=== PATIENT | male | born 2000 | race Caucasian/White ===

== ENCOUNTER 2020-07-30 05:47 | Day surgery (SDC) | payer MEDICAID ==
[~2020-07-30] VITALS: Ht 177.8 cm; Wt 95.0 kg
[2020-07-30] MEDS ORDERED: LACTATED RINGERS 1,000 ML IV SCH (06:33)
[2020-07-30 06:47] VITALS: BP 129/80
[2020-07-30] MEDS ORDERED: IBUPROFEN PO (06:52)
[2020-07-30] MEDS ORDERED: CHLORHEXIDINE 15 ML UDC ONE (06:54)
[2020-07-30] MEDS ORDERED: CHLORHEXIDINE 15 ML UDC MM ONE (07:00)
[2020-07-30] MEDS ORDERED: FENTANYL PF 250 MCG/5ML ONE (07:04)
[2020-07-30] MEDS ORDERED: MIDAZOLAM 1 MG/ML, 2ML ONE (07:04)
[2020-07-30] MEDS ORDERED: hydrALAzine 20 MG/ML, 1ML IV PRN (07:30)
[2020-07-30] MEDS ORDERED: LORazepam 2 MG/ML, 1ML IVPush PRN (07:30)
[2020-07-30] MEDS ORDERED: LABETALOL 5MG/ML, 20ML IV PRN (07:30)
[2020-07-30] MEDS ORDERED: METHOCARBAMOL 1,000 MG in DEXTROSE 5% 100 ML IV PRN (07:30)
[2020-07-30] MEDS ORDERED: HYDROmorphone 1 MG/ML, 1ML INJ IVPush PRN (07:30)
[2020-07-30] MEDS ORDERED: EPHEDRINE 50 MG/ML, 1ML IVPush PRN (07:30)
[2020-07-30] MEDS ORDERED: ACETAMINOPHEN 325 MG TABLET PO PRN (07:30)
[2020-07-30] MEDS ORDERED: OXYcodone 5 MG/5 ML ORAL.SOL UDC PO PRN (07:30)
[2020-07-30] MEDS ORDERED: PROMETHAZINE 25 MG SUPP PR PRN (07:30)
[2020-07-30] MEDS ORDERED: FENTANYL PF 100 MCG/2ML IV PRN (07:30)
[2020-07-30] MEDS ORDERED: KETOROLAC 30 MG/1 ML IVPush PRN (07:30)
[2020-07-30] MEDS ORDERED: DEXMEDETOMIDINE 200 MCG/2 ML ONE (07:35)
[2020-07-30] MEDS ORDERED: NEOSTIGMINE 1 MG/ML, 10ML ONE (07:58)
[2020-07-30] MEDS ORDERED: ONDANSETRON 2MG/ML, 2ML ONE (07:58)
[2020-07-30] MEDS ORDERED: SUCCINYLCHOLINE 20 MG/ML, 10ML ONE (07:58)
[2020-07-30] MEDS ORDERED: DEXAMETHASONE 4 MG/ML, 1ML ONE (07:58)
[2020-07-30] MEDS ORDERED: CEFAZOLIN 1,000 MG ONE (07:58)
[2020-07-30] MEDS ORDERED: GLYCOPYRROLATE 0.2MG/1ML, 5ML ONE (07:58)
[2020-07-30] MEDS ORDERED: PROPOFOL 10 MG/ML, 20ML ONE (07:58)
[2020-07-30] MEDS ORDERED: FENTANYL PF 100 MCG/2ML ONE (08:37)
[2020-07-30] MEDS ORDERED: ACETAMINOPHEN 650 MG/20.3 ML UDC ONE (08:48)
[2020-07-30] MEDS ORDERED: IBUPROFEN 600 MG TABLET PO ONE (10:00)
== END 2020-07-30 10:35 | disposition home or self-care (01) ==
LOC: OUT 05:47
PROVIDERS: ATTEND Otolaryngology
DX: J35.01 Chronic tonsillitis (principal); Z20.828 Contact with and (suspected) exposure to other viral communicable diseases; J35.8 Other chronic diseases of tonsils and adenoids; D11.7 Benign neoplasm of other major salivary glands
CPT/HCPCS: 10021; 36415; 42826; 87635; 88112; 88173; 88300; 88305; J0330; J0690; J1100; J2250; J2405; J2704; J3010; J7120; J2710

== ENCOUNTER 2021-04-12 17:56 | Emergency (ER) | payer MEDICAID ==
[~2021-04-12] VITALS: Ht 175.3 cm; Wt 95.9 kg
[~2021-04-12 17:56] MED LIST: IBUPROFEN PO
[2021-04-12 17:58] VITALS: BP 130/67
== END 2021-04-12 22:10 | disposition home or self-care (01) ==
LOC: ED 22:00
DX: S09.90XA Unspecified injury of head, initial encounter (principal); W22.8XXA Striking against or struck by other objects, initial encounter; Y93.89 Activity, other specified; Y92.69 Other specified industrial and construction area as the place of occurrence of the external cause; Y99.0 Civilian activity done for income or pay
CPT/HCPCS: 99281